=== PATIENT | female | born 1950 | race Caucasian/White ===

== ENCOUNTER → 2018-03-19 | Day surgery (SDC) | payer MEDICARE ==
[~2018-03-19] MED LIST: AMLODIPINE BESY10 MG PO; ATARAX 25MG25 MG; B12 INJ; BACLOFEN10 MG PO; BELLADONNA/OPIUM 30 MG SUPP RC ONE; CEFAZOLIN SOD 1 GM VIAL ONE; CEPHALEXIN500 MG PO; CLONIDINE HCL0.1 MG PO; CYMBALTA60 MG PO; DEXAMETHASONE SOD PHOS INJ 4 MG/ML VIAL ONE; ELIQUIS PO; FAMOTIDINE20 MG PO; FENTANYL CITRATE/PF 100MCG/2 ML INJ ONE; FUROSEMIDE40 MG PO; GABAPENTIN100 MG PO; GABAPENTIN300 MG PO; GENTAMICIN 120MG/NS 100ML 100 ML ONE; HYDROCHLOROTH12.5 MG PO; HYOSCYAMIN PO; IOPAMIDOL 300MG/ML 50ML INFUS..BTL IV ONE; LASIX10 MG/ML PO; LIDOCAINE HCL 2% LOCAL INJ 5 ML SDV VIAL INJ ONE; LOSARTAN-HCTZ1 EAC2 PO; METHADONE HCL5 MG PO; METOPROLOL SUCC50 MG PO; MIDAZOLAM HCL 2 MG/2 ML VIAL ONE; OMEGA 3-6-9 CO1 EACH PO; ONDANSETRON HCL INJ 2 MG/ML VIAL ONE; PROPOFOL IV EMULSION 10 MG/ML 20 ML VIAL ONE; SEVOFLURANE INHAL SOLN 250 ML PEN BTL ONE; TIZANIDINE HCL4 M1 PO; Z.0.ALLOPURINOL100 M PO; Z.0.AMBIEN10 MG PO; Z.0.ATENOLOL100 MG PO; Z.0.FOLIC ACID1 MG PO; Z.0.LEXAPRO10 MG PO; Z.0.OMEPRAZOLE40 MG PO; Z.0.OSCAL D500 MG PO; Z.0.SPIRONOLACTONE25 PO; Z.0.SYNTHROID100 MCG PO; Z.0.ZOCOR40 MG PO; [UNRECOGNIZED DRUG - CODE]; [UNRECOGNIZED DRUG - OTHER] PO
[2018-03-19 09:18] LABS: BASOPHILS # (AUTO) 0.1 (0.0-0.1); BASOPHILS % 0.7 % (0.0-1.0); EOSINOPHILS # (AUTO) 0.6 (0.0-0.4); EOSINOPHILS % 5.5 % (0.0-6.0); HEMATOCRIT 38.1 % (34.2-44.1); HEMOGLOBIN 12.4 g/dL (12.0-16.0); LYMPHOCYTES # (AUTO) 2.9 (1.0-3.2); LYMPHOCYTES % 26.4 % (18.0-39.1); MEAN CORPUSCULAR HEMOGLOBIN 31.2 pg (28-32); MEAN CORPUSCULAR HGB CONC 32.5 g/dL (31-35); MEAN CORPUSCULAR VOLUME 95.7 fL (81-99); MONOCYTES # (AUTO) 1.1 (0.2-0.8); MONOCYTES % 9.9 % (4.4-11.3); NEUTROPHILS # (AUTO) 6.3 (2.1-6.9); NEUTROPHILS % 57.2 % (38.7-80.0); PLATELET COUNT 359 x10e3/uL (140-360); RED BLOOD COUNT 3.98 x10e6/uL (3.6-5.1); RED CELL DISTRIBUTION WIDTH 15.6 % (11.7-14.4)
[2018-03-19 09:27] LABS: INR 1.15; PROTHROMBIN TIME 13.8 seconds (11.9-14.5)
[2018-03-19 09:34] LABS: ALANINE AMINOTRANSFERASE 7 IU/L (0-55); ALBUMIN 2.7 g/dL (3.5-5.0); ALBUMIN/GLOBULIN RATIO 0.7 (0.8-2.0); ALKALINE PHOSPHATASE 124 IU/L (40-150); ANION GAP 17.2 mmol/L (8-16); BLOOD UREA NITROGEN 7 mg/dL (7-26); BUN/CREATININE RATIO 13 (6-25); CARBON DIOXIDE 27 mmol/L (22-29); CHLORIDE 98 mmol/L (98-107); CREATININE, SERUM 0.55 mg/dL (0.57-1.11); EST GLOMERULAR FILTRATION RATE > 60 ML/MIN (60-); GLUCOSE 84 mg/dL (74-118); POTASSIUM 3.2 mmol/L (3.5-5.1); SODIUM 139 mmol/L (136-145)
--- NOTE | 2018-03-19 09:41 | Diagnostic Imaging Report ---
PROCEDURE: A single AP view of the chest. COMPARISON: Chest radiograph 03/03/2017. INDICATIONS: PREOPERATIVE CHEST XRAY FOR CYSTO SURGERY FINDINGS: Lines/tubes: None. Lungs: The lungs are well inflated and clear. There is no evidence of pneumonia or pulmonary edema. Pleura: There is no pleural effusion or pneumothorax. Heart and mediastinum: The cardiomediastinal silhouette is unchanged. Tortuosity and atherosclerotic calcification of the thoracic aorta is again noted. Bones: No acute bony abnormality. Partially seen cervical fixation hardware. Bilateral humeral prosthesis are noted, with chronic appearing right glenohumeral dislocation and partially seen glenoid/scapular fracture. Findings were present from chest radiograph on 03/03/17 but new since radiograph in 2011. IMPRESSION: No acute cardiopulmonary disease. Bilateral humeral prostheses. Chronic appearing right humeral dislocation with associated displaced acromion/scapular fracture, partially seen. Dictated by: EDUARD YOUNG M.D. on 03/19/2018 at 9:45 Electronically approved by: EDUARD YOUNG M.D. on 03/19/2018 at 9:45
--- NOTE | 2018-03-19 19:00 | Operative Report ---
DATE OF PROCEDURE: March 19, 2018 SERVICE: Urology. PREOPERATIVE DIAGNOSES 1. Bilateral hydronephrosis. 2. Presence of double-J stents bilaterally. 3. Urinary tract infection. 4. Urine incontinence. 5. Chronic Garduno. POSTOPERATIVE DIAGNOSES 1. Bilateral hydronephrosis. 2. Presence of double-J stents bilaterally. 3. Urinary tract infection. 4. Urine incontinence. 5. Chronic Garduno. OPERATION PERFORMED 1. Cystoscopy and removal of double-J stent from the left side. 2. Left retrograde pyelogram under fluoroscopic control. 3. Left ureteroscopy for removal. 4. Removal of double-J stent from the right side. No connection to the contralateral side and is done with different instruments. 5. Right retrograde pyelogram under fluoroscopic control. 6. Right ureteroscopy. 7. Interpretation of x-ray. Radiologist not present. 8. Supervision of fluoroscopy. Radiologist not present. FOOD TASTER: None. ANESTHESIA: General. CLINICAL INDICATION NOTE: This is a 67-year-old patient with multiple medical problems that had hydronephrosis in the past and had placement of double-J stent bilaterally. She was brought now for further assessment of the upper tract and considering whether the stents can be removed. The procedure was discussed with the patient and her spouse. The plan was discussed, explained and accepted. DESCRIPTION OF PROCEDURE AND FINDINGS: After proper level of anesthesia was achieved, the patient was placed in a modified lithotomy position as allowed by the significant contraction of both hips. She did have bilateral hip surgery. Urethra was inspected and was patent. Bladder outlet is normal. Bladder mucosa demonstrates some inflammatory changes. No tumor present. Double-J stent is protruding from both ureteral orifices. The left double-J stent was then removed. The open-ended catheter was inserted. There was some dilation of the system. However, it does not appear to have blockage along the ureter. For further assessment, the guidewire was kept in place, and a flexible ureteroscopy was done. No intrinsic lesions were found. Following this, the right double-J stent was removed. An open-ended catheter was inserted. There was some irregularity along the ureter. However, no obstruction was noticed. The upper tract is somewhat dilated. There does not seem to be obstruction between the UPJ and the pelvis, which is prominent. The guidewire was kept in place, and a flexible ureteroscopy was done. No intrinsic lesions were identified. It was elected not to replace the double-J stent. The bladder was then irrigated. The scope was removed. An 18-Romansh, 10-mL Garduno catheter was reinserted. Patient was transferred in satisfactory condition to the recovery room. She will be followed as outpatient. Job#: [id number]
--- NOTE | 2018-03-20 18:25 | Diagnostic Imaging Report ---
PROCEDURE: X-RAY RETROGRADE PYELOGRAM COMPARISON: None. INDICATIONS: Not provided. FINDINGS: Multiple intraoperative spot images of the abdomen and pelvis were obtained. [employer] images demonstrate bilateral ureteral stents. There are bilateral hip prostheses and significant dextroscoliosis of the lumbar spine. Left ureteral stent was removed. Opacification of the left ureter and collecting system demonstrates a tortuous ureter without intrinsic or extrinsic filling defect. The renal collecting system fills normally without filling defect or stricture. Right ureteral stent was removed. Injection of contrast into the right ureter and collecting system demonstrates tortuosity of the proximal and distal ureter without intraluminal filling defect. The renal collecting system has rounded contours. The infundibula and calyces are blunted. No intraluminal filling defects. Cumulative fluoro time: 00:27 seconds Cumulative area dose product: 168.08 cGycm2 Cumulative air kerma: 4.61 mGy CONCLUSION: Retrograde pyelogram as described above. Please see the operative note for full details. Dictated by: Cris Guerrero M.D. on 03/20/2018 at 18:29 Electronically approved by: Cris Guerrero M.D. on 03/20/2018 at 18:29
== END | disposition home or self-care (01) ==
LOC: OR 08:22
PROVIDERS: ATTEND Urology
DX: N13.30 Unspecified hydronephrosis (principal); Z46.6 Encounter for fitting and adjustment of urinary device; N39.0 Urinary tract infection, site not specified; R32 Unspecified urinary incontinence; M19.90 Unspecified osteoarthritis, unspecified site; M06.9 Rheumatoid arthritis, unspecified; I10 Essential (primary) hypertension; K58.9 Irritable bowel syndrome, unspecified; K21.9 Gastro-esophageal reflux disease without esophagitis; F32.9 Major depressive disorder, single episode, unspecified; F41.9 Anxiety disorder, unspecified; Z74.01 Bed confinement status; Z79.02 Long term (current) use of antithrombotics/antiplatelets; Z96.643 Presence of artificial hip joint, bilateral
CPT/HCPCS: 36415; 52351; 71045; 74420; 80053; 85025; 85610; 85730; 93005; J0690; J1100; J1580; J2001; J2250; J2405; Q9967